=== PATIENT | male | born 1960 | race Caucasian/White ===

== ENCOUNTER → 2024-08-18 16:55 | Outpatient (REF) | payer MEDICARE, SELFPAY | LOC: RAD 16:55 | PROVIDERS: ATTENDING PHYSICIAN Otolaryngology; FAMILY PHYSICIAN Family Medicine | DX: J33.0 Polyp of nasal cavity (principal); J34.2 Deviated nasal septum | CPT/HCPCS: 70486 ==

== ENCOUNTER → 2024-09-11 09:50 | Day surgery (SDC) | payer MEDICARE, SELFPAY ==
[2024-09-11 11:38] LABS: Hematocrit 39.1 % (39.0-52.0); Hemoglobin 13.2 g/dL (13.0-18.0); Mean Corp Hgb Conc. 33.8 g/dL (33.0-37.0); Mean Corpuscular Hgb 32.3 pg (27.0-31.0); Mean Corpuscular Volume 95.6 fL (80.0-94.0); Mean Platelet Volume 9.9 fL (7.4-10.4); Platelet Count 228 10^3/uL (130-400); Red Blood Cell Count 4.09 10^6/uL (4.70-6.10); Red Cell Dist. Width 12.6 % (11.5-14.5); White Blood Cell Count 8.3 10^3/uL (4.8-10.8)
== END ==
LOC: SDSPAT 09:50
PROVIDERS: ATTENDING PHYSICIAN Otolaryngology; FAMILY PHYSICIAN Family Medicine
DX: Z01.810 Encounter for preprocedural cardiovascular examination (principal); Z01.812 Encounter for preprocedural laboratory examination
CPT/HCPCS: 93005; 36415; 85027

== ENCOUNTER 2024-09-21 06:28 | Day surgery (SDC) | payer MEDICARE, SELFPAY ==
[2024-09-11 14:13] VITALS: BMI 23.8
[2024-09-21] VITALS (11 sets, daily range): BP systolic 114–126; BP diastolic 60–73; BMI 23.8
[2024-09-21] MEDS: TYLENOL 1000 MG PO (10:44)
[2024-09-21] MEDS: NORMOSOL-R/PLASMALYTE-A 1000 IV (10:44)
== END 2024-09-21 13:25 | disposition home or self-care (01) ==
LOC: SDS 06:28
PROVIDERS: ATTENDING PHYSICIAN Otolaryngology; FAMILY PHYSICIAN Family Medicine
DX: J32.9 Chronic sinusitis, unspecified (principal); J34.1 Cyst and mucocele of nose and nasal sinus
CPT/HCPCS: 31267; 31255; 31237; 88304; 88311